=== PATIENT | male | born 1955 | race Caucasian/White ===

== ENCOUNTER 2017-01-24 17:49 | Emergency (ER) | payer OTHER ==
[~2017-01-24] VITALS: Ht 177.8 cm; Wt 103.4 kg
[2017-01-24 17:50] VITALS: BP_SYST 134
[2017-01-24 19:16] VITALS: BP_SYST 125
== END 2017-01-24 19:16 | disposition home or self-care (01) ==
LOC: SED 17:49
DX: N43.3 Hydrocele, unspecified (principal); N45.1 Epididymitis; Z88.5 Allergy status to narcotic agent
CPT/HCPCS: 76870-TC; 99284